=== PATIENT | male | born 2000 | race Caucasian/White ===

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

== ENCOUNTER 2021-02-06 13:56 | Outpatient (REF) | payer MEDICAID, SELFPAY | END 2021-02-06 13:57 | disposition home or self-care (01) | LOC: HO.LAB 13:56 | PROVIDERS: Visit Provider Internal Medicine | DX: Z20.822 Contact with and (suspected) exposure to COVID-19 (principal) | CPT/HCPCS: C9803; U0003; U0005 ==

== ENCOUNTER 2022-06-30 00:49 | Emergency (ER) | payer MEDICAID, SELFPAY ==
[2022-06-30 01:03] VITALS: BP 139/98; PULSE 80; RESP 16; TEMP 36.4; O2SAT 99; BMI 29.9
== END 2022-06-30 05:05 | disposition left against medical advice (07) ==
PROVIDERS: Emergency Provider Emergency Medicine
DX: R10.11 Right upper quadrant pain (principal)
CPT/HCPCS: 99281

== ENCOUNTER 2023-07-07 11:02 | Inpatient (IN) | payer MEDICAID, SELFPAY ==
--- NOTE | ~2023-07-07 | MR_ITS ---
EXAMINATION: MR (MRCP) ABDOMEN WITHOUT CONTRAST CLINICAL INFORMATION: Elevated bilirubin. COMPARISON: Abdominal ultrasound 07/07/2023. CT abdomen/pelvis 07/07/2023. TECHNIQUE: MR abdomen is performed without gadolinium contrast. 3D MRCP images were processed on an independent workstation under concurrent supervision. FINDINGS: LUNG BASES: The visualized lung bases are unremarkable. LIVER, GALLBLADDER, AND BILIARY TREE: Signal loss in the opposed phase dual echo images consistent with hepatic steatosis with regions of fatty sparing adjacent to the gallbladder fossa. Otherwise, the liver is normal in size and morphology. No suspicious focal liver lesions seen in this limited non-contrast examination. Multiple gallbladder calculi, largest in the neck measuring up to 2 cm in size (4:11) with associated diffuse gallbladder wall thickening, mural edema and pericholecystic free fluid. No evidence of intrahepatic or extrahepatic biliary ductal dilatation. The common bile duct measures 0.5 cm in diameter. No evidence of choledocholithiasis. PANCREAS: Unremarkable. SPLEEN: Unremarkable. ADRENAL GLANDS: Unremarkable. KIDNEYS AND URETERS: The kidneys are normal in size and shape. No hydronephrosis. No perinephric stranding. GASTROINTESTINAL TRACT: No bowel obstruction. No ascites or fluid collection. ABDOMINAL WALL: No significant hernia is appreciated. LYMPH NODES: No lymphadenopathy. VASCULAR: Limited non-contrast examination. Normal caliber of the abdominal aorta. OSSEOUS STRUCTURES: No acute or aggressive appearing osseous findings. MR/MR MRCP IMPRESSION: 1. Findings consistent with acute cholecystitis. 2. No evidence of biliary ductal dilatation or choledocholithiasis. 3. Hepatic steatosis.
--- NOTE | ~2023-07-07 | US_ITS ---
EXAMINATION: US ABDOMEN LIMITED CLINICAL INFORMATION: Distended gallbladder on CT. COMPARISON: None available. TECHNIQUE: Real-time imaging of the right upper quadrant abdominal viscera, specifically the gallbladder and common bile duct. FINDINGS: GALLBLADDER: The gallbladder is physiologically distended. Several gallstones are present. Possible impacted gallstone at the gallbladder neck where the wall appears thickened to 0.5 cm focally. No appreciable pericholecystic fluid. Per technologist report, right upper quadrant tenderness was reported during the exam. COMMON BILE DUCT: Normal in caliber measuring 0.4 cm in diameter. US/US abdomen limited IMPRESSION: Cholelithiasis with possible impacted gallstone at the gallbladder neck where there is focal wall thickening. In the proper clinical setting, findings could reflect sequelae of early acute cholecystitis. If warranted, further evaluation with nuclear medicine hepatobiliary scan may be more definitive.
--- NOTE | ~2023-07-07 | CT_ITS ---
EXAMINATION: CT abdomen pelvis wo IV con CLINICAL INFORMATION: Reason for Exam RUQ and periumbilical pain COMPARISON: No prior CT available for comparison. TECHNIQUE: Multidetector volumetric imaging was performed from the superior aspect of the liver through the pubic symphysis , noncontrast study Sagittal and coronal reformatted images were obtained on the technologist's workstation. This CT examination was performed using dose optimization techniques as appropriate, variously including the following: *Automated exposure control *Adjustment of mA and/or kV according to patient size (this includes techniques or standardized protocols for targeted exams where dose is matched to indication/reason for exam; i.e. extremities or head) *Use of iterative reconstruction technique DLP: 409 mGy-cm FINDINGS: LOWER THORAX: Included lung bases are clear. HEPATOBILIARY: Mildly hypodense liver, probably mild steatosis. GALLBLADDER: Distended gallbladder otherwise unremarkable. SPLEEN: Spleen is normal in size. PANCREAS: No focal mass or ductal dilatation. STOMACH AND GASTROINTESTINAL TRACT: Stomach is grossly unremarkable. There is no bowel distention or thickening. No CT evidence of appendicitis. ADRENALS: No adrenal nodules. KIDNEYS/URETERS: No hydronephrosis, stones or solid mass lesions. URINARY BLADDER: Partially decompressed. PELVIC VISCERA: Unremarkable PERITONEUM: No free air or fluid. LYMPH NODES: No lymphadenopathy. VASCULAR:Abdominal aorta normal in size, no aneurysm found. BONES, ABDOMINAL WALL AND SOFT TISSUES: Age-appropriate changes of the spine and skeletal system, no destructive osteolytic or osteosclerotic bone lesion found CT/CT abdomen pelvis wo IV con IMPRESSION: 1. No CT evidence of acute intra-abdominal process to explain patient's pain symptoms. No evidence of appendicitis. No kidney stone or hydronephrosis. 2. Distended gallbladder, if there is a clinical suspicion for cholecystitis, would recommend correlation with follow-up ultrasound. 3. Mildly hypodense liver, probably mild steatosis.
[2023-07-07 11:07] VITALS: BP 140/87; PULSE 70; RESP 18; TEMP 36.4; O2SAT 98; BMI 28.1
--- NOTE | 2023-07-07 11:07 | ED.NAVMDI ---
HPI - Nausea/Vomiting/Diarrhea General Chief complaint: Abdominal Pain Stated complaint: Abd pain Time Seen by Provider: 07/07/23 16:12 Source: patient and family Mode of arrival: ambulatory Limitations: no limitations History of Present Illness HPI Narrative: 22-year-old male previously healthy presents the ER with complaints of right upper quadrant pain which began at 05:00 with associated vomiting. Patient reports that last night he went to [employer] and had a milkshake and pork ribs. He reports multiple episodes of nonbilious, nonbloody vomiting. He denies any associated diarrhea, constipation, urinary symptoms, fevers or chills. Associated nausea: Yes Related Data Allergies Allergy/AdvReac Type Severity Reaction Status Date / Time No Known Allergies Allergy Verified 06/30/22 01:07 [No Known Allergies*] Review of Systems Review of Systems: Yes all other systems are reviewed and are negative Constitutional: Constitutional: Reports no additional constitutional complaints, Denies body ache(s), Denies chills, Denies fever(s), Denies headache(s) and Denies weakness Eyes: Eyes: Reports no additional eye complaints and Denies change in vision ENT: Reports system reviewed and no additional complaints, except as documented, Denies dizziness, Denies headache(s), Denies nasal congestion, Denies nasal discharge and Denies neck pain Cardiovascular: Cardiovascular: Reports no additional cardiovascular complaints, Denies chest pain, Denies leg edema and Denies dyspnea Respiratory: Respiratory: Reports no additional respiratory complaints, Denies cough and Denies dyspnea Gastrointestinal: Gastrointestinal: Reports no additional gastrointestinal complaints, Reports abdominal pain, Denies constipation, Denies diarrhea, Reports nausea and Reports vomiting Genitourinary: Genitourinary: Denies urinary incontinence Musculoskeletal: Musculoskeletal: Reports no additional musculoskeletal complaints, Denies back pain, Denies arthralgias, Denies joint swelling, Denies neck pain, Denies numbness and Denies tingling Integumentary/Breasts: Skin/Breast: Reports system reviewed and no additional complaints, except as docu and Denies rash Neurologic: Reports system reviewed and no additional complaints, except as documented, Denies Abnormal speech present, Denies dizziness, Denies headache(s), Denies numbness, Denies tingling and Denies weakness PMFSH Past Medical History Attestation statement: The following information was validated with the patient. Source: old records reviewed and nursing notes reviewed Medical History Gallstone Social History Social History Advance Directives: No Advance Directives Information Provided: No Physical Exam Vital Signs: Vital Signs: Last Vital Signs Temp 97.5 F 07/07/23 11:07 Pulse 70 07/07/23 11:07 Resp 18 07/07/23 11:07 BP 140/87 H 07/07/23 11:07 Pulse Ox 98 07/07/23 11:07 O2 Del Method Room Air 07/07/23 11:07 BMI result Body Mass Index 28.1 Const: General: cooperative, healthy appearing, comfortable and no acute distress Orientation/consciousness: patient oriented x3 Limitations: no limitations HEENT: Head: Yes normal to inspection Ears: hearing grossly normal bilaterally General nose exam: Normal external nose present Face and sinus: Yes normal facial exam Mouth: Normal oral and palatal mucosa present Throat: Yes posterior oropharynx normal Eyes: General: appearance normal, both eyes and all related structures Pupils: Equal, round and reactive pupils present Neck: Neck: Yes normal visual inspection Chest: Chest palpation & inspection: normal inspection of the chest Resp: Effort & Inspection: normal respiratory effort Auscultation: clear to auscultation bilaterally Cardio: Rate: regular rate Rhythm: regular rhythm Peripheral pulses: Peripheral pulses 2+ throughout GI: Inspection: Yes normal to inspection Palpation (GI): Soft to palpation, Tenderness to palpation present (GI) in the RUQ; with no rebound tenderness and no guarding Auscultation: normal bowel sounds Back/Spine/Pelvis: Thoracic/Lumbar Spine: thoracic and lumbar spine normal to inspection Skin: General skin exam: no rashes or lesions noted Neuro: General: patient oriented x3, no focal motor deficits and normal sensation to monofilament Cranial nerves: Yes Equal, round and reactive pupils present Cognition (Neuro): normal cognition Speech: No Abnormal speech present Gait exam (Neuro): Normal gait present Motor exam (neuro): 5/5 motor strength present throughout Extrem: General: Yes normal to inspection Course Course Course Narrative: RME:?22 yo male here for eval of constant RUQ pain, N/V which woke him from his sleep at 0500 this morning. pain is not worse with eating. took tylenol [employer] however vomited this up. denies fever, chills, diarrhea. No sick contacts. no hx of abd surgeries. RUQ ttp without rebound or guarding. normoactive BS x4. labs, CT ordered. Full HPI, ROS and PE to be performed by the primary ED provider. Reevaluation(s) Reevaluation #1: [id number]-Spoke to general surgery. They are ordering antibiotics. At this time infection suspected. BCX and lactic acid ordered. Antibiotics ordered Medications Administered Discontinued Medications Generic Name Dose Route Start Last Admin Trade Name Freq PRN Reason Stop Dose Admin Ondansetron HCl 4 mg 07/07/23 11:09 07/07/23 11:14 Ondansetron Odt 4 Mg Tab.Rapdis TRANSLINGU 07/07/23 11:10 4 mg ONCE ONE Administration Medical Decision Making Medical Decision Making [facility] Narrative: 22-year-old male previously healthy presents the ER with complaints of right upper quadrant pain which began at 05:00 with associated vomiting. Patient reports that last night he went to [employer] and had a milkshake and pork ribs. He reports multiple episodes of nonbilious, nonbloody vomiting. He denies any associated diarrhea, constipation, urinary symptoms, fevers or chills. RUQ TTP. No rebound or guarding. Ct shows distended GB. US shows Cholelithiasis with possible impacted gallstone in the gallbladder neck where there is focal wall thickening. Surgery consulted who came down to see the patient Differential Diagnosis Differential Diagnoses: The differential diagnosis associated with the presentation includes Cholecystitis, cholelithiasis Admission/Observation Consideration of admission/observation: Escalation of care including admission/observation considered ultrasound shows cholelithiasis with impacted stone in the gallbladder neck. surgery was consulted who came down to see the patient will admit Consult Healthcare Provider Management of the patient was discussed with: Crane Service Technician Dr Brand-will admit Lab Data [facility] Lab Attestation statement: I reviewed the patient's lab results. 07/07/23 11:19 07/07/23 11:19 Labs: Lab Results 07/07/23 Range/Units 11:19 WBC 11.3 H (4.8-10.8) X10*3/uL RBC 5.58 (4.60-5.80) X10*6/uL Hgb 15.7 (14.0-18.0) g/dl Hct 45.8 (42.0-52.0) % MCV 82.1 (80.0-98.0) fL MCH 28.1 (27.0-33.0) pg MCHC 34.3 (31.0-36.0) g/dl RDW 12.0 (11.0-16.0) % Plt Count 258 (160-400) X10*3/uL MPV 10.1 (9.4-12.4) fL Immature Gran % (Auto) 0.4 (0.0-0.4) % Neut % (Auto) 87.0 H (45-73) % Lymph % (Auto) 9.4 L (20-40) % [place] % (Auto) 2.9 (2-11) % Eos % (Auto) 0.1 (0-4) % Baso % (Auto) 0.2 (0-2) % Lymph # (Auto) 1.1 L (1.2-4.9) X10*3/uL [place] # (Auto) 0.3 (0.1-1.2) X10*3/uL Eos # (Auto) 0.0 (0.0-0.4) X10*3/uL Baso # (Auto) 0.0 (0.0-0.2) X10*3/uL Abs Immat Gran (auto) 0.05 H (0.00-0.03) X10*3/uL Absolute Neuts (auto) 9.8 H (2.0-8.3) x10*3/uL Absolute Nucleated RBC 0.000 (0.0-0.012) X10*3/uL Nucleated RBC % (auto) 0.0 (0.0-0.2) /100WBC Sodium 142 (135-145) mmol/L Potassium 3.9 (3.3-5.1) mmol/L Chloride 104 (96-108) mmol/L Carbon Dioxide 29 (22-29) mmol/L Anion Gap 13 (12-20) BUN 13 (9-16) mg/dL Creatinine 1.19 (0.5-1.4) mg/dL Estim Creat Clear Calc 97.0 Estimated GFR > 60 Random Glucose 129 H (60-115) mg/dL Calcium 10.0 (8.4-10.2) mg/dL Magnesium 1.9 (1.6-2.6) mg/dL Total Bilirubin 0.6 (0.0-1.0) mg/dL AST 34 (5-37) U/L ALT 72 H (0-40) U/L Alkaline Phosphatase 69 (39-117) U/L Total Protein 8.8 H (6.5-8.0) g/dL Albumin 4.9 (3.5-5.0) g/dL Lipase 15 (8-78) U/L Independent Interpretation I performed an independent interpretation of an: Ultrasound and CT Scan Interpretation: I independently reviewed the abdominal US and CT scan and agree with the rad report Radiology Impression Discussion of test interpretation with radiology: I have reviewed the radiologist's reading. Radiologist Impression: [address] [address] Ultrasound Report Signed Patient: Adiel Spivey MR#: [id number] : 2000 Acct:[id number] Age/Sex: 22 / M ADM Date: 07/07/23 Loc: .ED Attending Dr: Ordering Physician: Denise Matthew Date of Service: 07/07/23 Procedure(s): US abdomen limited Accession Number(s): [id number] cc: Physician,Unknown ; Denise Matthew~ EXAMINATION: US ABDOMEN LIMITED CLINICAL INFORMATION: Distended gallbladder on CT. COMPARISON: None available. TECHNIQUE: Real-time imaging of the right upper quadrant abdominal viscera, specifically the gallbladder and common bile duct. FINDINGS: GALLBLADDER: The gallbladder is physiologically distended. Several gallstones are present. Possible impacted gallstone at the gallbladder neck where the wall appears thickened to 0.5 cm focally. No appreciable pericholecystic fluid. Per technologist report, right upper quadrant tenderness was reported during the exam. COMMON BILE DUCT: Normal in caliber measuring 0.4 cm in diameter. US/US abdomen limited IMPRESSION: Cholelithiasis with possible impacted gallstone at the gallbladder neck where there is focal wall thickening. In the proper clinical setting, findings could reflect sequelae of early acute cholecystitis. If warranted, further evaluation with nuclear medicine hepatobiliary scan may be more definitive. [address] [address] [address] Scan Report Signed Patient: Adiel Spivey MR#: [id number] : 2000 Acct:[id number] Age/Sex: 22 / M ADM Date: 07/07/23 Loc: HO.ED Attending Dr: Ordering Physician: Denise Matthew Date of Service: 07/07/23 Procedure(s): CT abdomen pelvis wo IV con Accession Number(s): [id number] cc: Physician,Unknown ; Denise Matthew~ EXAMINATION: CT abdomen pelvis wo IV con CLINICAL INFORMATION: Reason for Exam RUQ and periumbilical pain COMPARISON: No prior CT available for comparison. TECHNIQUE: Multidetector volumetric imaging was performed from the superior aspect of the liver through the pubic symphysis , noncontrast study Sagittal and coronal reformatted images were obtained on the technologist's workstation. This CT examination was performed using dose optimization techniques as appropriate, variously including the following: *Automated exposure control *Adjustment of mA and/or kV according to patient size (this includes techniques or standardized protocols for targeted exams where dose is matched to indication/reason for exam; i.e. extremities or head) *Use of iterative reconstruction technique DLP: 409 mGy-cm FINDINGS: LOWER THORAX: Included lung bases are clear. HEPATOBILIARY: Mildly hypodense liver, probably mild steatosis. GALLBLADDER: Distended gallbladder otherwise unremarkable. SPLEEN: Spleen is normal in size. PANCREAS: No focal mass or ductal dilatation. STOMACH AND GASTROINTESTINAL TRACT: Stomach is grossly unremarkable. There is no bowel distention or thickening. No CT evidence of appendicitis. ADRENALS: No adrenal nodules. KIDNEYS/URETERS: No hydronephrosis, stones or solid mass lesions. URINARY BLADDER: Partially decompressed. PELVIC VISCERA: Unremarkable PERITONEUM: No free air or fluid. LYMPH NODES: No lymphadenopathy. VASCULAR:Abdominal aorta normal in size, no aneurysm found. BONES, ABDOMINAL WALL AND SOFT TISSUES: Age-appropriate changes of the spine and skeletal system, no destructive osteolytic or osteosclerotic bone lesion found CT/CT abdomen pelvis wo IV con IMPRESSION: 1. No CT evidence of acute intra-abdominal process to explain patient's pain symptoms. No evidence of appendicitis. No kidney stone or hydronephrosis. 2. Distended gallbladder, if there is a clinical suspicion for cholecystitis, would recommend correlation with follow-up ultrasound. 3. Mildly hypodense liver, probably mild steatosis. Independent Historian Clinical information obtained from an independent historian. History obtained from or confirmed by: Parent Critical Care Time Critical Care Time Critical Care Time: Yes Total Critical Care Time: 45 Attestation: surgical abdomen requiring surgical consultation and admission Discharge Plan Discharge Clinical Impression: Gallstone Patient Disposition: Admitted As Inpatient
[2023-07-07] MEDS: Ondansetron ODT 4 MG TAB.RAPDIS TRANSLINGU (11:14)
[2023-07-07 11:22] LABS: MANUAL DIFF FLAG NO
[2023-07-07 11:33] LABS: Basophils Percent Auto 0.2 % (0-2); Eosinophils Percent Auto 0.1 % (0-4); Hematocrit 45.8 % (42.0-52.0); Hemoglobin 15.7 g/dl (14.0-18.0); Imm Gran Abs Auto 0.05 X10*3/uL (0.00-0.03); Imm Gran Pct Auto 0.4 % (0.0-0.4); Lymphocytes Absolute Auto 1.1 X10*3/uL (1.2-4.9); Lymphocytes Percent Auto 9.4 % (20-40); Mean Corpuscular HGB Conc 34.3 g/dl (31.0-36.0); Mean Corpuscular Hemoglobin 28.1 pg (27.0-33.0); Mean Corpuscular Volume 82.1 fL (80.0-98.0); Mean Platelet Volume 10.1 fL (9.4-12.4); Monocytes Absolute Auto 0.3 X10*3/uL (0.1-1.2); Monocytes Percent Auto 2.9 % (2-11); Neutrophils Absolute Auto 9.8 x10*3/uL (2.0-8.3); Platelet Count 258 X10*3/uL (160-400); Red Blood Count 5.58 X10*6/uL (4.60-5.80); White Blood Count 11.3 X10*3/uL (4.8-10.8)
[2023-07-07 11:41] LABS: Alanine Aminotransferase 72 U/L (0-40); Albumin Level 4.9 g/dL (3.5-5.0); Alkaline Phosphatase 69 U/L (39-117); Anion Gap 13 (12-20); Aspartate Amino Transferase 34 U/L (5-37); Bilirubin Total 0.6 mg/dL (0.0-1.0); Blood Urea Nitrogen 13 mg/dL (9-16); Carbon Dioxide 29 mmol/L (22-29); Chloride 104 mmol/L (96-108); Estimated Glomerular Filt Rate > 60; Glucose Random 129 mg/dL (60-115); Lipase 15 U/L (8-78); Magnesium 1.9 mg/dL (1.6-2.6); Potassium 3.9 mmol/L (3.3-5.1); Sodium 142 mmol/L (135-145); Total Protein 8.8 g/dL (6.5-8.0)
[2023-07-07 16:10] VITALS: BP 159/74; PULSE 85; RESP 14; TEMP 37.2; O2SAT 100
--- NOTE | 2023-07-07 16:22 | PM.HPGS ---
History of Present Illness History of Present Illness Date of Service: 07/09/23 Chief complaint: Gallstones Narrative: Adiel Mullins is a 22 year old male here in the ED for RUQ pain. He says this started at around 7 AM today. The describes this as constant. He says this was not severe but had persisted so he decided to come to the ED this afternoon. He admits to some nausea and vomitting earlier. He denies previous similar episodes. Review of Systems Constitutional: Constitutional: Denies chills and Denies fever(s) Cardiovascular: Cardiovascular: Denies chest pain, Denies dyspnea and Denies dyspnea on exertion Respiratory: Respiratory: Denies cough, Denies dyspnea and Denies dyspnea on exertion Gastrointestinal: Gastrointestinal: Denies hematochezia and Denies change in bowel habits Genitourinary: Genitourinary: Denies hematuria and Denies difficulty urinating Musculoskeletal: Musculoskeletal: Denies back pain and Denies limited range of motion Neurologic: Denies focal weakness and Denies convulsions Psychiatric: Psychiatric: Denies depression and Denies mood swings PMFSH Past Medical History Medical History Gallstone Social History Social History Household Members: Family Housing: Apartment Do you presently have visiting nurse or other home services: No Patient Tobacco Use Status: Never used Tobacco Smoked in Last 30 Days: No Second Hand Smoke Exposure: No Use of substances other than those prescribed or required for medical reasons: No Currently Displaying Signs/Symptoms of Drug Intoxication Withdrawal: No Have you been hit, kicked, punched, or otherwise hurt by someone within the past year? If so, by whom?: No Do you feel safe in your current relationship?: No Current Relationship Is there a partner from a previous relationship who is making you feel unsafe now?: No Are you made to feel afraid or neglected: No Are you DNR?: No Advance Directives: No Advance Directives Information Provided: No Advance Directives on File: No Do you have thoughts of harming others: None Do you have a plan to hurt others: No Plan Recently lost weight without trying: No Nutrition Risks: No Nutritional Risk Poor oral hygiene: No service: No Meds Allergies Allergy/AdvReac Type Severity Reaction Status Date / Time No Known Allergies Allergy Verified 06/30/22 01:07 [No Known Allergies*] Physical Exam Vital Signs: Vital Signs: Last Vital Signs Temp 97.5 F 07/07/23 11:07 Pulse 70 07/07/23 11:07 Resp 18 07/07/23 11:07 BP 140/87 H 07/07/23 11:07 Pulse Ox 98 07/07/23 11:07 O2 Del Method Room Air 07/07/23 11:07 BMI result Body Mass Index 28.1 Const: General: comfortable and no acute distress Orientation/consciousness: patient oriented x3 Eyes: Other: anicteric sclerae Neck: Neck: Yes no lymphadenopathy Resp: Auscultation: clear to auscultation bilaterally Cardio: Rhythm: regular rhythm GI: Other: mild tenderness to deep palpation on RUQ, no Rae's sign Palpation (GI): Soft to palpation, nontender and no guarding Neuro: General: patient oriented x3 Results Results Labs: Short CBC 07/07/23 Range/Units 11:19 WBC 11.3 H (4.8-10.8) X10*3/uL Hgb 15.7 (14.0-18.0) g/dl Hct 45.8 (42.0-52.0) % Plt Count 258 (160-400) X10*3/uL BMP 07/07/23 11:19 Sodium 142 Potassium 3.9 Chloride 104 Carbon Dioxide 29 BUN 13 Creatinine 1.19 Calcium 10.0 Liver Function 07/07/23 Range/Units 11:19 Total Bilirubin 0.6 (0.0-1.0) mg/dL AST 34 (5-37) U/L ALT 72 H (0-40) U/L Alkaline Phosphatase 69 (39-117) U/L Albumin 4.9 (3.5-5.0) g/dL Abdomen CT scan report/results: report reviewed and image reviewed CT scan - pelvis: report reviewed and image reviewed Abdominal ultrasound report/results: report reviewed and image reviewed Additional studies: Laboratory Results WBC 11.3 X10*3/uL (4.8-10.8) H 07/07/23 11:19 RBC 5.58 X10*6/uL (4.60-5.80) 07/07/23 11:19 Hgb 15.7 g/dl (14.0-18.0) 07/07/23 11:19 Hct 45.8 % (42.0-52.0) 07/07/23 11:19 MCV 82.1 fL (80.0-98.0) 07/07/23 11:19 MCH 28.1 pg (27.0-33.0) 07/07/23 11:19 MCHC 34.3 g/dl (31.0-36.0) 07/07/23 11:19 RDW 12.0 % (11.0-16.0) 07/07/23 11:19 Plt Count 258 X10*3/uL (160-400) 07/07/23 11:19 MPV 10.1 fL (9.4-12.4) 07/07/23 11:19 Immature Gran % (Auto) 0.4 % (0.0-0.4) 07/07/23 11:19 Neut % (Auto) 87.0 % (45-73) H 07/07/23 11:19 Lymph % (Auto) 9.4 % (20-40) L 07/07/23 11:19 [place] % (Auto) 2.9 % (2-11) 07/07/23 11:19 Eos % (Auto) 0.1 % (0-4) 07/07/23 11:19 Baso % (Auto) 0.2 % (0-2) 07/07/23 11:19 Lymph # (Auto) 1.1 X10*3/uL (1.2-4.9) L 07/07/23 11:19 [place] # (Auto) 0.3 X10*3/uL (0.1-1.2) 07/07/23 11:19 Eos # (Auto) 0.0 X10*3/uL (0.0-0.4) 07/07/23 11:19 Baso # (Auto) 0.0 X10*3/uL (0.0-0.2) 07/07/23 11:19 Abs Immat Gran (auto) 0.05 X10*3/uL (0.00-0.03) H 07/07/23 11:19 Absolute Neuts (auto) 9.8 x10*3/uL (2.0-8.3) H 07/07/23 11:19 Absolute Nucleated RBC 0.000 X10*3/uL (0.0-0.012) 07/07/23 11:19 Nucleated RBC % (auto) 0.0 /100WBC (0.0-0.2) 07/07/23 11:19 Sodium 142 mmol/L (135-145) 07/07/23 11:19 Potassium 3.9 mmol/L (3.3-5.1) 07/07/23 11:19 Chloride 104 mmol/L (96-108) 07/07/23 11:19 Carbon Dioxide 29 mmol/L (22-29) 07/07/23 11:19 Anion Gap 13 (12-20) 07/07/23 11:19 BUN 13 mg/dL (9-16) 07/07/23 11:19 Creatinine 1.19 mg/dL (0.5-1.4) 07/07/23 11:19 Estim Creat Clear Calc 97.0 07/07/23 11:19 Estimated GFR > 60 07/07/23 11:19 Random Glucose 129 mg/dL (60-115) H 07/07/23 11:19 Calcium 10.0 mg/dL (8.4-10.2) 07/07/23 11:19 Magnesium 1.9 mg/dL (1.6-2.6) 07/07/23 11:19 Total Bilirubin 0.6 mg/dL (0.0-1.0) 07/07/23 11:19 AST 34 U/L (5-37) 07/07/23 11:19 ALT 72 U/L (0-40) H 07/07/23 11:19 Alkaline Phosphatase 69 U/L (39-117) 07/07/23 11:19 Total Protein 8.8 g/dL (6.5-8.0) H 07/07/23 11:19 Albumin 4.9 g/dL (3.5-5.0) 07/07/23 11:19 Lipase 15 U/L (8-78) 07/07/23 11:19 Impressions Abdomen/Pelvis CT 07/07/23 11:48 IMPRESSION: 1. No CT evidence of acute intra-abdominal process to explain patient's pain symptoms. No evidence of appendicitis. No kidney stone or hydronephrosis. 2. Distended gallbladder, if there is a clinical suspicion for cholecystitis, would recommend correlation with follow-up ultrasound. 3. Mildly hypodense liver, probably mild steatosis. Abdomen Ultrasound 07/07/23 14:50 IMPRESSION: Cholelithiasis with possible impacted gallstone at the gallbladder neck where there is focal wall thickening. In the proper clinical setting, findings could reflect sequelae of early acute cholecystitis. If warranted, further evaluation with nuclear medicine hepatobiliary scan may be more definitive. Assessment and Plan (1) Gallstone: Status: Acute Plan He describes mild RUQ pain. I have reviewed his imaging studies. He has gallstones, and there is a question of a gallstone in the neck. he has a very benign exam and has mild tenderness. I advised him admission in view of the question of cholecystitis. I explained the option of proceeding with lap cholecystectomy poss. open for acute cholecystitis. I exaplined the risks including but not limited to bleeding, infections, injury to bowel, liver, bile ducts, retained stones, bile leak, as well as the benefits and alternatives. He says he is willing to stay and will decide on cholecystectomy tomorrow. His mother was with him during the discussion. Quality Stroke Does the patient have a stroke diagnosis?: No VTE Prior VTE?: No VTE Risk Level:: Medical - low VTE Device Contraindication: Treatment Not Indicated VTE Drug Contraindication: Treatment Not Indicated Procedures Date of Service Date of Service: 07/09/23
[2023-07-07] MEDS: 0.9 % Sodium Chloride 1,000 ML 999 ML IV (17:12)
[2023-07-07] MEDS: Piperacillin Sodium/Tazobactam 3.375 GM in 0.9 % Sodium Chloride 50 ML IV (17:13)
[2023-07-07] MEDS: Morphine Sulfate 4 MG/ML CARTRIDGE IVPUSH (17:13)
[2023-07-07] MEDS: ondansetron HCL 4 MG/2 ML VIAL IVPUSH (17:13)
[2023-07-07 17:20] LABS: Lactic Acid 1.5 mmol/L (0.5-2.0)
--- NOTE | 2023-07-07 17:51 | PHA.MEDREC ---
Pharmacy Consult ? Medication Reconciliation Patient had no medications to report. Pharmacy has completed the medication reconciliation.
[2023-07-07 18:39] VITALS: BP 130/77; PULSE 78; RESP 16; TEMP 36.8; O2SAT 97
[2023-07-07] MEDS: Dextrose 5 % and 0.9 % NaCl 1,000 ML 80 ML IVCONT (18:40)
[2023-07-07 20:45] VITALS: BP 129/75; PULSE 100; RESP 20; TEMP 36.4; O2SAT 98
--- NOTE | 2023-07-07 21:14 | MHC.PIE ---
p; pt arrived from ed c/o nausea. note prn zofran given in ed at 1700 i; dr kinney notified. telephone order phenergan 12.5 iv q6 for nausea. e; will cont to monitor
[2023-07-07] MEDS: 0.9 % Sodium Chloride Flush 3 ML SYRINGE IVFLUSH (21:29)
[2023-07-07 21:33] VITALS: BMI 28.8
[2023-07-08 03:45] VITALS: BP 130/67; PULSE 99; RESP 16; TEMP 36.5; O2SAT 96
[2023-07-08 05:38] LABS: MANUAL DIFF FLAG NO
[2023-07-08 05:43] LABS: Basophils Percent Auto 0.2 % (0-2); Hematocrit 41.4 % (42.0-52.0); Hemoglobin 14.2 g/dl (14.0-18.0); Imm Gran Abs Auto 0.03 X10*3/uL (0.00-0.03); Imm Gran Pct Auto 0.3 % (0.0-0.4); Lymphocytes Percent Auto 21.4 % (20-40); Mean Corpuscular HGB Conc 34.3 g/dl (31.0-36.0); Mean Corpuscular Hemoglobin 28.5 pg (27.0-33.0); Mean Platelet Volume 10.2 fL (9.4-12.4); Monocytes Percent Auto 10.4 % (2-11); Neutrophils Absolute Auto 6.4 x10*3/uL (2.0-8.3); Neutrophils Percent Auto 67.7 % (45-73); Platelet Count 225 X10*3/uL (160-400); Red Blood Count 4.99 X10*6/uL (4.60-5.80); Red Cell Distribution Width 12.5 % (11.0-16.0); White Blood Count 9.5 X10*3/uL (4.8-10.8)
[2023-07-08 05:59] LABS: Anion Gap 13 (12-20); Blood Urea Nitrogen 8 mg/dL (9-16); Calcium 9.1 mg/dL (8.4-10.2); Carbon Dioxide 26 mmol/L (22-29); Chloride 106 mmol/L (96-108); Creatinine Clr Calc Pharmacy 128.3; Estimated Glomerular Filt Rate > 60; Glucose Random 118 mg/dL (60-115); Potassium 3.4 mmol/L (3.3-5.1); Sodium 142 mmol/L (135-145)
[2023-07-08 06:00] LABS: Alanine Aminotransferase 141 U/L (0-40); Alkaline Phosphatase 57 U/L (39-117); Anion Gap 14 (12-20); Aspartate Amino Transferase 142 U/L (5-37); Bilirubin Total 1.5 mg/dL (0.0-1.0); Blood Urea Nitrogen 8 mg/dL (9-16); Calcium 9.1 mg/dL (8.4-10.2); Carbon Dioxide 26 mmol/L (22-29); Chloride 106 mmol/L (96-108); Creatinine Clr Calc Pharmacy 125.6; Estimated Glomerular Filt Rate > 60; Glucose Random 118 mg/dL (60-115); Potassium 3.5 mmol/L (3.3-5.1); Sodium 142 mmol/L (135-145); Total Protein 7.1 g/dL (6.5-8.0)
[2023-07-08] MEDS: Dextrose 5 % and 0.9 % NaCl 1,000 ML 80 ML IVCONT ×2 (06:06→19:38)
[2023-07-08 07:23] VITALS: BP 120/62; PULSE 71; RESP 16; TEMP 36.7; O2SAT 96
--- NOTE | 2023-07-08 08:29 | PM.PNGS ---
Subjective Subjective Date of Service: 07/08/23 Interval history: says he was ok overnight pain better - minimal overall feels well Physical Exam Vital Signs: Vital Signs: Last Vital Signs Temp 98.1 F 07/08/23 07:23 Pulse 71 07/08/23 07:23 Resp 16 07/08/23 07:23 BP 120/62 07/08/23 07:23 Pulse Ox 96 07/08/23 07:23 O2 Del Method Room Air 07/08/23 07:23 BMI result Body Mass Index 28.8 Const: General: comfortable and no acute distress Orientation/consciousness: patient oriented x3 Neck: Neck: Yes no lymphadenopathy Resp: Auscultation: clear to auscultation bilaterally Cardio: Rhythm: regular rhythm GI: Other: very minimal tenderness on deep palpation Palpation (GI): Soft to palpation, Tenderness to palpation present (GI) and no guarding Neuro: General: patient oriented x3 Objective Data Active Medications Dextrose/Sodium Chloride (D5ns) 1,000 mls @ 80 mls/hr IVCONT .[id number] [facility] Last Admin: 07/08/23 06:06 Dose: 80 mls/hr Documented By: SREEDHAR Promethazine HCl 12.5 mg/ (Sodium Chloride) 50.5 mls @ 202 mls/hr IV Q6H PRN PRN Reason: Nausea Last Infusion: 07/07/23 21:52 Dose: Infused Documented By: SREEDHAR Cefotetan Disodium 2 gm/ (Sodium Chloride) 50 mls @ 100 mls/hr IV PREOP ONE Stop: 07/08/23 08:42 Morphine Sulfate (Morphine Sulfate 2 Mg/Ml Cartridge) 2 mg IVPUSH Q3H PRN; Protocol PRN Reason: Pain, Severe (Pain Scale 7-10) Ondansetron HCl (Ondansetron Hcl 4 Mg/2 Ml Vial) 4 mg IVPUSH Q8H PRN PRN Reason: nausea Oxycodone HCl (Oxycodone Hcl Immed Release 5 Mg Tablet) 5 mg PO Q6H PRN PRN Reason: Pain, Moderate(Pain Scale 4-6) Sodium Chloride (0.9 % Sodium Chloride Flush 3 Ml Syringe) 3 ml IVFLUSH QSHIFT [facility] Last Admin: 07/07/23 21:29 Dose: 3 ml Documented By: SREEDHAR Labs 07/08/23 05:18 07/08/23 05:18 Labs: Laboratory Results - last 24 hr 07/07/23 07/07/23 07/08/23 11:19 17:03 05:18 MCV 82.1 83.0 MCH 28.1 28.5 MCHC 34.3 34.3 RDW 12.0 12.5 Plt Count 258 225 MPV 10.1 10.2 Immature Gran % (Auto) 0.4 0.3 Neut % (Auto) 87.0 H 67.7 Lymph % (Auto) 9.4 L 21.4 [place] % (Auto) 2.9 10.4 Eos % (Auto) 0.1 0.0 Baso % (Auto) 0.2 0.2 Lymph # (Auto) 1.1 L 2.0 [place] # (Auto) 0.3 1.0 Eos # (Auto) 0.0 0.0 Baso # (Auto) 0.0 0.0 Abs Immat Gran (auto) 0.05 H 0.03 Absolute Neuts (auto) 9.8 H 6.4 Absolute Nucleated RBC 0.000 0.000 Nucleated RBC % (auto) 0.0 0.0 Anion Gap 13 13 Estim Creat Clear Calc 97.0 Estimated GFR > 60 Random Glucose 129 H Lactic Acid 1.5 Calcium 10.0 Magnesium 1.9 Total Bilirubin 0.6 AST 34 ALT 72 H Alkaline Phosphatase 69 Total Protein 8.8 H Albumin 4.9 Lipase 15 07/08/23 07/08/23 07/08/23 05:18 05:18 05:18 MCV MCH MCHC RDW Plt Count MPV Immature Gran % (Auto) Neut % (Auto) Lymph % (Auto) [place] % (Auto) Eos % (Auto) Baso % (Auto) Lymph # (Auto) [place] # (Auto) Eos # (Auto) Baso # (Auto) Abs Immat Gran (auto) Absolute Neuts (auto) Absolute Nucleated RBC Nucleated RBC % (auto) Anion Gap 14 Estim Creat Clear Calc 128.3 125.6 Estimated GFR > 60 > 60 Random Glucose 118 H Lactic Acid Calcium Magnesium Total Bilirubin AST ALT Alkaline Phosphatase Total Protein Albumin Lipase 07/08/23 07/08/23 05:18 05:18 MCV MCH MCHC RDW Plt Count MPV Immature Gran % (Auto) Neut % (Auto) Lymph % (Auto) [place] % (Auto) Eos % (Auto) Baso % (Auto) Lymph # (Auto) [place] # (Auto) Eos # (Auto) Baso # (Auto) Abs Immat Gran (auto) Absolute Neuts (auto) Absolute Nucleated RBC Nucleated RBC % (auto) Anion Gap Estim Creat Clear Calc Estimated GFR Random Glucose 118 H Lactic Acid Calcium 9.1 D 9.1 Magnesium Total Bilirubin 1.5 H AST 142 H ALT 141 H Alkaline Phosphatase 57 Total Protein 7.1 Albumin 4.0 Lipase Laboratory Results WBC 9.5 X10*3/uL (4.8-10.8) 07/08/23 05:18 RBC 4.99 X10*6/uL (4.60-5.80) 07/08/23 05:18 Hgb 14.2 g/dl (14.0-18.0) 07/08/23 05:18 Hct 41.4 % (42.0-52.0) L 07/08/23 05:18 MCV 83.0 fL (80.0-98.0) 07/08/23 05:18 MCH 28.5 pg (27.0-33.0) 07/08/23 05:18 MCHC 34.3 g/dl (31.0-36.0) 07/08/23 05:18 RDW 12.5 % (11.0-16.0) 07/08/23 05:18 Plt Count 225 X10*3/uL (160-400) 07/08/23 05:18 MPV 10.2 fL (9.4-12.4) 07/08/23 05:18 Immature Gran % (Auto) 0.3 % (0.0-0.4) 07/08/23 05:18 Neut % (Auto) 67.7 % (45-73) 07/08/23 05:18 Lymph % (Auto) 21.4 % (20-40) 07/08/23 05:18 [place] % (Auto) 10.4 % (2-11) 07/08/23 05:18 Eos % (Auto) 0.0 % (0-4) 07/08/23 05:18 Baso % (Auto) 0.2 % (0-2) 07/08/23 05:18 Lymph # (Auto) 2.0 X10*3/uL (1.2-4.9) 07/08/23 05:18 [place] # (Auto) 1.0 X10*3/uL (0.1-1.2) 07/08/23 05:18 Eos # (Auto) 0.0 X10*3/uL (0.0-0.4) 07/08/23 05:18 Baso # (Auto) 0.0 X10*3/uL (0.0-0.2) 07/08/23 05:18 Abs Immat Gran (auto) 0.03 X10*3/uL (0.00-0.03) 07/08/23 05:18 Absolute Neuts (auto) 6.4 x10*3/uL (2.0-8.3) 07/08/23 05:18 Absolute Nucleated RBC 0.000 X10*3/uL (0.0-0.012) 07/08/23 05:18 Nucleated RBC % (auto) 0.0 /100WBC (0.0-0.2) 07/08/23 05:18 Sodium 142 mmol/L (135-145) 07/08/23 05:18 Sodium 142 mmol/L (135-145) 07/08/23 05:18 Potassium 3.4 mmol/L (3.3-5.1) 07/08/23 05:18 Potassium 3.5 mmol/L (3.3-5.1) 07/08/23 05:18 Chloride 106 mmol/L (96-108) 07/08/23 05:18 Chloride 106 mmol/L (96-108) 07/08/23 05:18 Carbon Dioxide 26 mmol/L (22-29) 07/08/23 05:18 Carbon Dioxide 26 mmol/L (22-29) 07/08/23 05:18 Anion Gap 13 (12-20) 07/08/23 05:18 Anion Gap 14 (12-20) 07/08/23 05:18 BUN 8 mg/dL (9-16) L 07/08/23 05:18 BUN 8 mg/dL (9-16) L 07/08/23 05:18 Creatinine 0.91 mg/dL (0.5-1.4) 07/08/23 05:18 Creatinine 0.93 mg/dL (0.5-1.4) 07/08/23 05:18 Estim Creat Clear Calc 125.6 07/08/23 05:18 Estim Creat Clear Calc 128.3 07/08/23 05:18 Estimated GFR > 60 07/08/23 05:18 Estimated GFR > 60 07/08/23 05:18 Random Glucose 118 mg/dL (60-115) H 07/08/23 05:18 Random Glucose 118 mg/dL (60-115) H 07/08/23 05:18 Lactic Acid 1.5 mmol/L (0.5-2.0) 07/07/23 17:03 Calcium 9.1 mg/dL (8.4-10.2) 07/08/23 05:18 Calcium 9.1 mg/dL (8.4-10.2) D 07/08/23 05:18 Magnesium 1.9 mg/dL (1.6-2.6) 07/07/23 11:19 Total Bilirubin 1.5 mg/dL (0.0-1.0) H 07/08/23 05:18 AST 142 U/L (5-37) H 07/08/23 05:18 ALT 141 U/L (0-40) H 07/08/23 05:18 Alkaline Phosphatase 57 U/L (39-117) 07/08/23 05:18 Total Protein 7.1 g/dL (6.5-8.0) 07/08/23 05:18 Albumin 4.0 g/dL (3.5-5.0) 07/08/23 05:18 Lipase 15 U/L (8-78) 07/07/23 11:19 Impressions Abdomen/Pelvis CT 07/07/23 11:48 IMPRESSION: 1. No CT evidence of acute intra-abdominal process to explain patient's pain symptoms. No evidence of appendicitis. No kidney stone or hydronephrosis. 2. Distended gallbladder, if there is a clinical suspicion for cholecystitis, would recommend correlation with follow-up ultrasound. 3. Mildly hypodense liver, probably mild steatosis. Abdomen Ultrasound 07/07/23 14:50 IMPRESSION: Cholelithiasis with possible impacted gallstone at the gallbladder neck where there is focal wall thickening. In the proper clinical setting, findings could reflect sequelae of early acute cholecystitis. If warranted, further evaluation with nuclear medicine hepatobiliary scan may be more definitive. Procedures Date of Service Date of Service: 07/08/23 Progress Note: A&P Assessment and plan (1) Gallstone: Status: Acute Assessment and Plan: had RUQ pain all day yesterday, improved imaging showed multiple small gallstones, question of stone in neck pt scheduled for lap manjinder today however, significant bump in bilirubin to 1.5 pt with very minimal tenderness today will check MRCP will hold off on lap manjinder for today plan to do manjinder tomorrow if CBD clear follow LFTs discussed above with pt and mother Time Spent With Patient Time: Total time managing care of this patient today ____ minutes. Quality Stroke Does the patient have a stroke diagnosis?: No VTE Prior VTE?: No VTE Risk Level:: Medical - low VTE Device Contraindication: Treatment Not Indicated VTE Drug Contraindication: Treatment Not Indicated
[2023-07-08] MEDS: 0.9 % Sodium Chloride Flush 3 ML SYRINGE IVFLUSH (08:48)
--- NOTE | 2023-07-08 11:22 | MHC.CM.PN ---
PT LIVES WITH FAMILY IS INDEPENDENT DC PLAN HOME NO SERVIES PT WILL GET TRANSPORT THRU FAMILY
[2023-07-08 15:03] VITALS: BP 109/59; PULSE 74; RESP 16; TEMP 36.8; O2SAT 99
[2023-07-08] MEDS: oxyCODONE HCl Immed Release 5 MG TABLET PO (16:40)
[2023-07-08 19:13] VITALS: BP 116/65; PULSE 93; RESP 14; TEMP 36.6; O2SAT 96
[2023-07-09] VITALS (14 sets, daily range): BP systolic 115–136; BP diastolic 59–80; PULSE 83–116; RESP 13–17; TEMP 36–37.4; O2SAT 95–99
[2023-07-09 06:09] LABS: Alanine Aminotransferase 149 U/L (0-40); Albumin Level 4.1 g/dL (3.5-5.0); Alkaline Phosphatase 65 U/L (39-117); Aspartate Amino Transferase 74 U/L (5-37); Bilirubin Direct 0.5 mg/dL (0.0-0.5); Bilirubin Total 1.5 mg/dL (0.0-1.0); Total Protein 7.5 g/dL (6.5-8.0)
[2023-07-09] MEDS: Dextrose 5 % and 0.9 % NaCl 1,000 ML 80 ML IVCONT ×2 (07:27→23:07)
--- NOTE | 2023-07-09 09:02 | P.PNGS_ITS ---
Subjective Subjective Date of Service: 07/09/23 Interval history: has very minimal pain no events reported Physical Exam 2 Vital Signs: Vital Signs: Last Vital Signs Temp 97.4 F 07/09/23 07:47 Pulse 93 07/09/23 07:47 Resp 16 07/09/23 07:47 BP 127/72 07/09/23 07:47 Pulse Ox 97 07/09/23 07:47 O2 Del Method Room Air 07/09/23 07:47 BMI result Body Mass Index 28.8 Const: General: comfortable and no acute distress O rientation/consciousness: patient oriented x3 Neck: Neck: Yes no lymphadenopathy Resp: Auscultation: clear to auscultation bilaterally Cardio: Rhythm: regular rhythm GI: Palpation (GI): Soft to palpation, nontender and no guarding Neuro: General: patient oriented x3 Objective Data Active Medications Dextrose/Sodium Chloride (D5ns) 1,000 mls @ 80 mls/hr IVCONT .[id number] [facility] Last Admin: 07/09/23 07:27 Dose: 80 mls/hr Documented By: EM Promethazine HCl 12.5 mg/ (Sodium Chloride) 50.5 mls @ 202 mls/hr IV Q6H PRN PRN Reason: Nausea Last Infusion: 07/07/23 21:52 Dose: Infused Documented By: SREEDHAR Cefotetan Disodium 2 gm/ (Sodium Chloride) 50 mls @ 100 mls/hr IV PREOP ONE Stop: 07/09/23 09:29 Morphine Sulfate (Morphine Sulfate 2 Mg/Ml Cartridge) 2 mg IVPUSH Q3H PRN; Protocol PRN Reason: Pain, Severe (Pain Scale 7-10) Ondansetron HCl (Ondansetron Hcl 4 Mg/2 Ml Vial) 4 mg IVPUSH Q8H PRN PRN Reason: nausea Oxycodone HCl (Oxycodone Hcl Immed Release 5 Mg Tablet) 5 mg PO Q6H PRN PRN Reason: Pain, Moderate(Pain Scale 4-6) Last Admin: 07/08/23 16:40 Dose: 5 mg Documented By: EM Sodium Chloride (0.9 % Sodium Chloride Flush 3 Ml Syringe) 3 ml IVFLUSH QSHIFT [facility] Last Admin: 07/09/23 07:28 Dose: Not Given Documented By: EM Non-Admin Reason: IV Running Labs 07/08/23 05:18 07/08/23 05:18 Labs: Laboratory Results - last 24 hr 07/09/23 07/09/23 05:20 05:46 Hold Purple Top SEE NOTE Total Bilirubin 1.5 H Direct Bilirubin 0.5 AST 74 H ALT 149 H Alkaline Phosphatase 65 Total Protein 7.5 Albumin 4.1 Microbiology Microbiology Results: Microbiology 07/07/23 17:03 Blood Culture - Preliminary Blood - Venous No growth after 24 hours. 07/07/23 17:03 Blood Culture - Preliminary Blood - Venous No growth after 24 hours. Procedures Date of Service Date of Service: 07/09/23 Progress Note: A&P Assessment and plan (1) Gallstone: Status: Acute Assessment and Plan: MRCP does not suggest CBD stones LFTs better - direct bili low proceed with lap manjinder poss open today reviewed technique of procedure as well as risks, benefits and alternatives he has given consent mother at bedside Time Spent With Patient Time: Total time managing care of this patient today ____ minutes. Quality Stroke Does the patient have a stroke diagnosis?: No VTE Prior VTE?: No VTE Risk Level:: Medical - low VTE Device Contraindication: Treatment Not Indicated VTE Drug Contraindication: Treatment Not Indicated
--- NOTE | 2023-07-09 11:25 | HO.ANESPROP2 ---
HPI - Anesthesia Eval Consult details Narrative: for yahir dunbar PMFSH Active Problems Active Problems: All Active Problems (Updated 07/07/23 @ 16:36 by Mary Noriega NP) Gallstone (Acute) Past Medical History Medical History Gallstone Family History Family history of problems with anesthesia: No Surgical History History of Problems with Anesthesia: No Social History Social History Household Members: Family Housing: Apartment Do you presently have visiting nurse or other home services: No Patient Tobacco Use Status: Never used Tobacco Smoked in Last 30 Days: No Second Hand Smoke Exposure: No Use of substances other than those prescribed or required for medical reasons: No Currently Displaying Signs/Symptoms of Drug Intoxication Withdrawal: No Have you been hit, kicked, punched, or otherwise hurt by someone within the past year? If so, by whom?: No Do you feel safe in your current relationship?: No Current Relationship Is there a partner from a previous relationship who is making you feel unsafe now?: No Are you made to feel afraid or neglected: No Are you DNR?: No Advance Directives: No Advance Directives Information Provided: No Advance Directives on File: No Do you have thoughts of harming others: None Do you have a plan to hurt others: No Plan Recently lost weight without trying: No Nutrition Risks: No Nutritional Risk Poor oral hygiene: No service: No Meds Allergies Allergy/AdvReac Type Severity Reaction Status Date / Time No Known Allergies Allergy Verified 06/30/22 01:07 [No Known Allergies*] Active Medications: Current Medications Dextrose/Sodium Chloride (D5ns) 1,000 mls @ 80 mls/hr IVCONT .[id number] [facility] Last Admin: 07/09/23 07:27 Dose: 80 mls/hr Promethazine HCl 12.5 mg/ (Sodium Chloride) 50.5 mls @ 202 mls/hr IV Q6H PRN PRN Reason: Nausea Last Infusion: 07/07/23 21:52 Dose: Infused Morphine Sulfate (Morphine Sulfate 2 Mg/Ml Cartridge) 2 mg IVPUSH Q3H PRN; Protocol PRN Reason: Pain, Severe (Pain Scale 7-10) Ondansetron HCl (Ondansetron Hcl 4 Mg/2 Ml Vial) 4 mg IVPUSH Q8H PRN PRN Reason: nausea Oxycodone HCl (Oxycodone Hcl Immed Release 5 Mg Tablet) 5 mg PO Q6H PRN PRN Reason: Pain, Moderate(Pain Scale 4-6) Last Admin: 07/08/23 16:40 Dose: 5 mg Sodium Chloride (0.9 % Sodium Chloride Flush 3 Ml Syringe) 3 ml IVFLUSH [facility] Last Admin: 07/09/23 07:28 Dose: Not Given Home Medications Medication Instructions Recorded Confirmed Last Taken Type No Known Home Meds 07/07/23 07/07/23 Unknown History Exam Height,Weight and Vital Signs: Height 5 ft 6 in Weight 81 kg Last Vital Signs Temp 98.4 F 07/09/23 10:33 Pulse 98 07/09/23 10:33 Resp 16 07/09/23 10:33 BP 125/80 07/09/23 10:33 Pulse Ox 98 07/09/23 10:33 O2 Del Method Room Air 07/09/23 10:33 Pertinent Lab Results Pertinent Lab Results: Laboratory Tests 07/07/23 07/07/23 07/08/23 11:19 17:03 05:18 WBC 11.3 H 9.5 RBC 5.58 4.99 Hgb 15.7 14.2 Hct 45.8 41.4 L MCV 82.1 83.0 MCH 28.1 28.5 MCHC 34.3 34.3 RDW 12.0 12.5 Plt Count 258 225 MPV 10.1 10.2 Immature Gran % (Auto) 0.4 0.3 Neut % (Auto) 87.0 H 67.7 Lymph % (Auto) 9.4 L 21.4 [place] % (Auto) 2.9 10.4 Eos % (Auto) 0.1 0.0 Baso % (Auto) 0.2 0.2 Lymph # (Auto) 1.1 L 2.0 [place] # (Auto) 0.3 1.0 Eos # (Auto) 0.0 0.0 Baso # (Auto) 0.0 0.0 Abs Immat Gran (auto) 0.05 H 0.03 Absolute Neuts (auto) 9.8 H 6.4 Absolute Nucleated RBC 0.000 0.000 Nucleated RBC % (auto) 0.0 0.0 Hold Purple Top Sodium 142 142 Potassium 3.9 Chloride 104 Carbon Dioxide 29 Anion Gap 13 BUN 13 Creatinine 1.19 Estim Creat Clear Calc 97.0 Estimated GFR > 60 Random Glucose 129 H Lactic Acid 1.5 Calcium 10.0 Magnesium 1.9 Total Bilirubin 0.6 Direct Bilirubin AST 34 ALT 72 H Alkaline Phosphatase 69 Total Protein 8.8 H Albumin 4.9 Lipase 15 07/08/23 07/08/23 07/08/23 05:18 05:18 05:18 WBC RBC Hgb Hct MCV MCH MCHC RDW Plt Count MPV Immature Gran % (Auto) Neut % (Auto) Lymph % (Auto) [place] % (Auto) Eos % (Auto) Baso % (Auto) Lymph # (Auto) [place] # (Auto) Eos # (Auto) Baso # (Auto) Abs Immat Gran (auto) Absolute Neuts (auto) Absolute Nucleated RBC Nucleated RBC % (auto) Hold Purple Top Sodium 142 Potassium 3.4 3.5 Chloride 106 106 Carbon Dioxide 26 Anion Gap BUN Creatinine Estim Creat Clear Calc Estimated GFR Random Glucose Lactic Acid Calcium Magnesium Total Bilirubin Direct Bilirubin AST ALT Alkaline Phosphatase Total Protein Albumin Lipase 07/08/23 07/08/23 07/08/23 05:18 05:18 05:18 WBC RBC Hgb Hct MCV MCH MCHC RDW Plt Count MPV Immature Gran % (Auto) Neut % (Auto) Lymph % (Auto) [place] % (Auto) Eos % (Auto) Baso % (Auto) Lymph # (Auto) [place] # (Auto) Eos # (Auto) Baso # (Auto) Abs Immat Gran (auto) Absolute Neuts (auto) Absolute Nucleated RBC Nucleated RBC % (auto) Hold Purple Top Sodium Potassium Chloride Carbon Dioxide 26 Anion Gap 13 14 BUN 8 L 8 L Creatinine 0.91 Estim Creat Clear Calc Estimated GFR Random Glucose Lactic Acid Calcium Magnesium Total Bilirubin Direct Bilirubin AST ALT Alkaline Phosphatase Total Protein Albumin Lipase 07/08/23 07/08/23 07/08/23 05:18 05:18 05:18 WBC RBC Hgb Hct MCV MCH MCHC RDW Plt Count MPV Immature Gran % (Auto) Neut % (Auto) Lymph % (Auto) [place] % (Auto) Eos % (Auto) Baso % (Auto) Lymph # (Auto) [place] # (Auto) Eos # (Auto) Baso # (Auto) Abs Immat Gran (auto) Absolute Neuts (auto) Absolute Nucleated RBC Nucleated RBC % (auto) Hold Purple Top Sodium Potassium Chloride Carbon Dioxide Anion Gap BUN Creatinine 0.93 Estim Creat Clear Calc 128.3 125.6 Estimated GFR > 60 > 60 Random Glucose 118 H Lactic Acid Calcium Magnesium Total Bilirubin Direct Bilirubin AST ALT Alkaline Phosphatase Total Protein Albumin Lipase 07/08/23 07/08/23 07/09/23 05:18 05:18 05:20 WBC RBC Hgb Hct MCV MCH MCHC RDW Plt Count MPV Immature Gran % (Auto) Neut % (Auto) Lymph % (Auto) [place] % (Auto) Eos % (Auto) Baso % (Auto) Lymph # (Auto) [place] # (Auto) Eos # (Auto) Baso # (Auto) Abs Immat Gran (auto) Absolute Neuts (auto) Absolute Nucleated RBC Nucleated RBC % (auto) Hold Purple Top Sodium Potassium Chloride Carbon Dioxide Anion Gap BUN Creatinine Estim Creat Clear Calc Estimated GFR Random Glucose 118 H Lactic Acid Calcium 9.1 D 9.1 Magnesium Total Bilirubin 1.5 H 1.5 H Direct Bilirubin 0.5 AST 142 H 74 H ALT 141 H 149 H Alkaline Phosphatase 57 65 Total Protein 7.1 7.5 Albumin 4.0 4.1 Lipase 07/09/23 05:46 WBC RBC Hgb Hct MCV MCH MCHC RDW Plt Count MPV Immature Gran % (Auto) Neut % (Auto) Lymph % (Auto) [place] % (Auto) Eos % (Auto) Baso % (Auto) Lymph # (Auto) [place] # (Auto) Eos # (Auto) Baso # (Auto) Abs Immat Gran (auto) Absolute Neuts (auto) Absolute Nucleated RBC Nucleated RBC % (auto) Hold Purple Top SEE NOTE Sodium Potassium Chloride Carbon Dioxide Anion Gap BUN Creatinine Estim Creat Clear Calc Estimated GFR Random Glucose Lactic Acid Calcium Magnesium Total Bilirubin Direct Bilirubin AST ALT Alkaline Phosphatase Total Protein Albumin Lipase Airway Mallampati Class: II TM Dist: >3cm Neck ROM: Full Heart: rrr Lungs: cta Assessment and Plan Assessment Anesthesia Assessment: Anesthesia Plan Discussed and Chart Reviewed Final Anesthetic Review Family History of Problems with Anesthesia: No History of Problems with Anesthesia: No NPO: Yes ASA Class: I Final Preanesthetic Review: No Changes in Pt Med Stat, Meds/Allgs Chart Reviewed, Consent Obtained/Reviewed and Anes Risks/Benef Reviewed Patient Risk: Low Procedure Risk: Intermediate Anesthetic Plan Anesthetic Plan: GA Disposition: Standard PACU
--- NOTE | 2023-07-09 12:54 | P.OP_ITS ---
Operative Note Operative Note Date of Service: 07/09/23 Narrative: Preop diagnosis: Acute calculous cholecystitis Postop diagnosis the same Procedure: Laparoscopic cholecystectomy Surgeon: Phoenix Brand MD occupational therapist assistant: LESIA Estrada The patient is a 22-year-old male admitted for right upper quadrant pain and tenderness. He is ultrasound was suggestive of acute cholecystitis with a large stone in the neck. He had a bump in his bilirubin yesterday so the procedure was held. His MRCP did not reveal CBD stones I therefore schedule him for laparoscopic cholecystectomy today. He understands the technique of the procedure. He is aware of the risks, benefits, and alternatives He was brought to the operating room. He was placed supine under general anesthesia via endotracheal tube. The abdomen was prepped and draped in the usual sterile fashion. A surgical time-out was done. The patient received Cefotan 2 g IV preoperatively I made a short incision in the supra umbilical margin using a blade 15. This was carried down bluntly through the full-thickness of the skin subcutaneous fat down to the fascia. The fascia was incised. The peritoneum was entered. Through this incision a Anahy port was introduced. Pneumoperitoneum was introduced to a pressure of 15 mm Hg. From here on the rest of the procedure was done under vision with a 10 mm laparoscope. With laparoscopic visualization I inserted a 5/12 minutes port in the epigastric area at the subcostal margin the. Two 5 mm ports introduced through small incisions below the subcostal margin along the anterior axillary line and the midclavicular line. Graspers were placed through these working ports. The patient was placed in head up and [id number] position. The gallbladder was seen. This was markedly distended and appeared to be tense so I had to decompress this with an aspirating needle through 1 of the working ports. Once this was decompressed, we were able to play grasper at the fundus. This was used to retract the gallbladder cephalad. There was note of some thick adhesions on the anterior wall which we had to carefully bluntly separate using a [place] dissector. Eventually were able to expose the entire anterior wall. I was able to apply a grasper towards the pouch of the gallbladder and this was used to retract gallbladder laterally. At this point the gallbladder was being retracted in a cephalad and lateral fashion to put the area of the cystic duct on stretch. I proceeded to carefully new blunt dissection of the neck of the gallbladder using the [place] dissector because of the presence of thick inflamed fiber areolar tissue. We continued with this dissection until I was able to carefully define the confluence of the neck of the gallbladder with the cystic duct. By doing so we were able to also achieve a critical view of the hepatocystic triangle. The cystic artery was seen clearly. There was note of significant oozing from the gallbladder itself because of the acute inflammation. The gallbladder was very edematous and inflamed. I therefore applied clips on the cystic duct with 2 clips being applied distally. The cystic duct was transected between clips with Endo scissors. I proceeded to apply clips on the cystic artery as well and this was divided between clips with Endo scissors. Two clips were applied distally We proceeded to apply traction on the gallbladder away from the liver bed. I used the electrocautery spatula to carefully divide across the hilum. I made an incision on the thick inflamed peritoneum of the gallbladder using the electrocautery spatula. I then proceeded to create a plane of dissection along this incision and the gallbladder from the liver bed using a combination of sharp dissection with the electrocautery and blunt dissection with the tip of the spatula. We continued to separate the gallbladder away from the liver bed along this well-defined plane of dissection all the way to the fundus until the entire gallbladder was completely . The gallbladder was retrieved through an endobag through the umbilical incision I reinserted all ports and re-insufflated. I examined the area of dissection carefully. I copiously irrigated and suctioned out the irrigant fluid as there was a little bit of leak of bile from the stump of the cystic duct on the gallbladder side. I then observed all 4 quadrants. There was no other pathology there was no evidence of any bile leak or any bleeding or bowel injury. I reinserted the subhepatic space. No evidence of any bleeding. Once hemostasis was confirmed, I desufflated through the port sites. I removed all p orts under vision with the laparoscope. The umbilical port was removed last The fascia of the umbilical incision was closed with a [id number] Polysorb 0 stitch. Skin closure was achieved all incisions using Polysorb 4-0 subcuticular running sutures. All incisions were infiltrated with Marcaine 0.5% for postop analgesia. Steri- Strips and dressings were applied. The procedure was completed The patient tolerated procedure well. There were no immediate complications. Initial and final counts of sponges and instruments were correct. Estimated blood loss was about 100 cc The patient was extubated without difficulty and transferred to the recovery room with stable vital signs.
--- NOTE | 2023-07-09 14:39 | PC.NURSE ---
Addendum entered by Mandie March RN 07/09/23 14:48: Pt denying pain at this time. Original Note: Pt returned from PACU at 1439, at this time Pt A&Ox3 but drowsy, arousable to voice. Pt has 4 band-aids in place, two midline and two to the right abd. Middle band-aid has small amount of staining. VSS.
--- NOTE | 2023-07-09 15:47 | PM.EVENT ---
Event Note Date of Service: 07/09/23 Event Note: Seen postop Underwent uneventful laparoscopic cholecystectomy earlier Asleep Complaining of incisional pain but otherwise adequate pain control Stable vital signs Abdomen soft Pain management Diet as tolerated Possibly DC home tomorrow Mother at bedside, updated Time Spent With Patient Time: Total time managing care of this patient today ____ minutes.
[2023-07-09] MEDS: oxyCODONE HCl Immed Release 5 MG TABLET 10 MG PO ×2 (16:44→23:15)
[2023-07-10 03:06] VITALS: BP 113/56; PULSE 90; RESP 18; TEMP 36.5; O2SAT 97
[2023-07-10] MEDS: oxyCODONE HCl Immed Release 5 MG TABLET 10 MG PO ×2 (08:09→12:15)
[2023-07-10] MEDS: 0.9 % Sodium Chloride Flush 3 ML SYRINGE IVFLUSH (08:12)
[2023-07-10 08:20] VITALS: BP 109/52; PULSE 89; RESP 16; TEMP 36.8; O2SAT 97
--- NOTE | 2023-07-10 09:02 | P.PNGS_ITS ---
Subjective Subjective Date of Service: 07/10/23 <Tanya Estrada PA-C - Last Filed: 07/10/23 09:04> 07/10/23 <Phoenix Brand MD - Last Filed: 07/10/23 10:06> Interval history: Tolerating solid diet without nausea or vomiting. Having pain at umbilicus but comfortable with analgesics. OOB and ambulating without difficulty. Mom at bedside. <Tanya Estrada PA-C - Last Filed: 07/10/23 09:04> Physical Exam 2 Vital Signs: Vital Signs: Last Vital Signs Temp 98.3 F 07/10/23 08:20 Pulse 89 07/10/23 08:20 Resp 16 07/10/23 08:20 BP 109/52 L 07/10/23 08:20 Pulse Ox 97 07/10/23 08:20 O2 Del Method Room Air 07/10/23 08:20 O2 Flow Rate 2.0 07/09/23 15:09 BMI result Body Mass Index 28.8 <Tanya Estrada PA-C - Last Filed: 07/10/23 09:04> Const: General: comfortable, no acute distress and alert <Tanya Estrada PA-C - Last Filed: 07/10/23 09:04> Orientation/consciousness: patient oriented x3 <Tanya Estrada PA-C - Last Filed: 07/10/23 09:04> Resp: Effort & Inspection: normal respiratory effort <Tanya Estrada PA-C - Last Filed: 07/10/23 09:04> GI: Inspection: No distended and Yes incision (dressings intact) <Tanya Estrada PA-C - Last Filed: 07/10/23 09:04> Palpation (GI): Soft to palpation, Tenderness to palpation present (GI) (mild incisional), no guarding and not rigid <DIANA Taylor Last Filed: 07/10/23 09:04> Skin: General skin exam: no rashes or lesions noted and no jaundice < Tanya Estrada PA-C - Last Filed: 07/10/23 09:04> Neuro: General: patient oriented x3 <Tanya Estrada PA-C - Last Filed: 07/10/23 09:04> Objective Data Active Medications Acetaminophen (Acetaminophen 325 Mg Tablet) 650 mg PO Q6H PRN PRN Reason: fever, pain Dextrose/Sodium Chloride (D5ns) 1,000 mls @ 80 mls/hr IVCONT .[id number] [facility] Last Admin: 07/10/23 08:10 Dose: Not Given Documented By: ARIAN Non-Admin Reason: Physician Held Med Promethazine HCl 12.5 mg/ (Sodium Chloride) 50.5 mls @ 202 mls/hr IV Q6H PRN PRN Reason: Nausea Last Infusion: 07/07/23 21:52 Dose: Infused Documented By: SREEDHAR Morphine Sulfate (Morphine Sulfate 4 Mg/Ml Cartridge) 4 mg IVPUSH Q4H PRN; Protocol PRN Reason: Pain, Severe (Pain Scale 7-10) Ondansetron HCl (Ondansetron Hcl 4 Mg/2 Ml Vial) 4 mg IVPUSH Q8H PRN PRN Reason: nausea Oxycodone HCl (Oxycodone Hcl Immed Release 5 Mg Tablet) 5 mg PO Q6H PRN PRN Reason: Pain, Moderate(Pain Scale 4-6) Last Admin: 07/08/23 16:40 Dose: 5 mg Documented By: EM Oxycodone HCl (Oxycodone Hcl Immed Release 5 Mg Tablet) 10 mg PO Q4H PRN PRN Reason: Pain, Severe (Pain Scale 7-10) Last Admin: 07/10/23 08:09 Dose: 10 mg Documented By: ARIAN Sodium Chloride (0.9 % Sodium Chloride Flush 3 Ml Syringe) [facility] Last Admin: 07/10/23 08:12 Dose: 3 ml Documented By: ARIAN <Tanya Estrada PA-C - Last Filed: 07/10/23 09:04> Labs CBC & Chem 7: 07/08/23 05:18 07/08/23 05:18 <Tanya Estrada PA-C - Last Filed: 07/10/23 09:04> Microbiology Microbiology Results: Microbiology 07/07/23 17:03 Blood Culture - Preliminary Blood - Venous No growth after 48 hours. 07/07/23 17:03 Blood Culture - Preliminary Blood - Venous No growth after 48 hours. <Tanya Estrada PA-C - Last Filed: 07/10/23 09:04> Procedures Date of Service Date of Service: 07/10/23 <Tanya Estrada PA-C - Last Filed: 07/10/23 09:04> 07/10/23 <Phoenix Brand MD - Last Filed: 07/10/23 10:06> Progress Note: A&P Assessment and plan (1) S/P laparoscopic cholecystectomy: Status: Acute <Tanya Estrada PA-C - Last Filed: 07/10/23 09:04> Assessment and Plan: Seen earlier on rounds Has pain on the umbilical incision Tolerating diet Looks well overall Has been ambulating Okay to DC home These instructions emphasized His mom was at bedside Seen and examined independently, agree with LESIA Estrada <Phoenix Brand MD - Last Filed: 07/10/23 10:06> Assessment and Plan: POD #1 s/p lap manjinder for acute cholecystitis. Doing well post op, tolerating diet and pain well controlled. Abdomen benign with appropriate post op tenderness. Dressings intact. Stable for dc to home today. F/u in office in 2 weeks. Patient and mom comfortable with plan. <Tanya Estrada PA-C - Last Filed: 07/10/23 09:04> Time Spent With Patient Time: Total time managing care of this patient today ____ minutes. <Tanya Estrada PA-C - Last Filed: 07/10/23 09:04> Quality Stroke Does the patient have a stroke diagnosis?: No <Tanya Estrada PA-C - Last Filed: 07/10/23 09:04> VTE Prior VTE?: No <Tanya Estrada PA-C - Last Filed: 07/10/23 09:04> VTE Risk Level:: Medical - low <Tanya Estrada PA-C - Last Filed: 07/10/23 09:04> VTE Device Contraindication: Treatment Not Indicated <Tanya Estrada PA-C - Last Filed: 07/10/23 09:04> VTE Drug Contraindication: Treatment Not Indicated <Tanya Estrada PA-C - Last Filed: 07/10/23 09:04>
--- NOTE | 2023-07-10 09:16 | MHC.CM.PN ---
pt is dcd home no services
--- NOTE | 2023-07-10 13:25 | PM.DS ---
DS: Providers Provider Date of Service: 07/10/23 Date of admission: 07/07/23 16:31 Date of discharge: 07/10/23 Primary care physician: Unknown Physician Attending physician on admission: Phoenix Brand Attending physician on discharge: Phoenix Brand DS: Diagnosis Discharge Diagnosis (1) S/P laparoscopic cholecystectomy: Status: Acute DS: Summary Hospital Course Hospital Course: HPI AT ADMISSION: Aidel Mullins is a 22 year old male here in the ED for RUQ pain. He says this started at around 7 AM today. The describes this as constant. He says this was not severe but had persisted so he decided to come to the ED this afternoon. He admits to some nausea and vomiting earlier. He denies previous similar episodes. Imaging showed gallstones with a question of a gallstone in the neck, concerning for acute cholecystitis. He was overall well appearing with a benign, non tender abdominal exam however admission was advised in view of the question of cholecystitis with option of proceeding with lap cholecystectomy poss. open. HOSPITAL COURSE: The patient was admitted to the surgical service for further treatment. He elected to proceed with lap cholecystectomy however he had a bump in his LFTs the following day and therefore cholecystectomy was held and MRCP was performed. This demonstrated no CBD stone. His LFTs improved the following day and surgery was planned. On 07/09/23, a laparoscopic cholecystectomy was performed by Dr. Brand without complication. The patient tolerated the procedure well. He had an uncomplicated recovery course. On POD #1, he felt well with good pain control. He was tolerating a solid diet and ambulating without difficulty. His vitals were stable and abdomen was benign with intact dressings. He felt ready for discharge. He was discharged to home on 07/10/23 in stable condition. He is to follow up in the office in 2 weeks. Status at Discharge Functional status at discharge: independent ambulation Overall status at discharge: patient is progressing back to baseline Time Attestation Discharge coordination time: Less than 30 minutes Quality: Safe Use of Opioids Does Pt have an Active Cancer Diagnosis on the Problem List?: No Quality: Stroke Does the patient have a stroke diagnosis?: No Physical Exam Vital Signs: Vital Signs: Last Vital Signs Temp 98.3 F 07/10/23 08:20 Pulse 89 07/10/23 08:20 Resp 16 07/10/23 08:20 BP 109/52 L 07/10/23 08:20 Pulse Ox 97 07/10/23 08:20 O2 Del Method Room Air 07/10/23 08:20 O2 Flow Rate 2.0 07/09/23 15:09 BMI result Body Mass Index 28.8 Const: General: comfortable, no acute distress and alert Orientation/consciousness: patient oriented x3 Resp: Effort & Inspection: normal respiratory effort GI: Inspection: No distended and Yes incision (dressings intact) Palpation (GI): Soft to palpation, Tenderness to palpation present (GI) (mild incisional), no guarding and not rigid Skin: General skin exam: no rashes or lesions noted and no jaundice Neuro: General: patient oriented x3 and moves all extremities DS: Data Data Completed and Pending Pending studies at discharge: Pending at discharge 07/09/23 12:39 Surgical [PTH] Routine Labs on day of discharge: Preliminary micro results at discharge 07/07/23 17:03 Blood Culture - Preliminary Blood - Venous No growth after 48 hours. 07/07/23 17:03 Blood Culture - Preliminary Blood - Venous No growth after 48 hours. Discharge Plan Discharge Anticipated Discharge Date/Time: 07/10/23 09:01 Patient Disposition: Home, Self-Care Discharge Diagnosis: acute cholecystitis Referrals: Phoenix Brand MD [Physician] - 2 Weeks Physician,Talya J [Primary Care Provider] - 1 Week Discharge Medications: New ibuprofen 600 mg tablet 600 mg PO Q6H PRN (Reason: pain) Qty: 30 0RF oxycodone 5 mg tablet 5 mg PO Q4H PRN (Reason: pain (scale score 7-10)) Qty: 24 0RF Rx Instructions: Partial Fill upon patient request. docusate sodium [Colace] 100 mg capsule 100 mg PO BID Qty: 30 0RF Discharge Orders: Discharge Order (Routine); Ordered 07/10/23 Ordered By: Tanya Estrada Diet: Low fat, low cholesterol Activity on Discharge: No heavy lifting Stand Alone Forms: Patient Portal Discharge page Activity Restrictions/Additional Instructions: If the incision area is tender, you may apply an ice pack for short intervals (No more than 20 minutes on, followed by at least 20 minutes off). Do not apply heat. Do not use creams, lotions, or topical antibiotics. These can cause infection or allergic reaction. Ok to shower 24 hours after your surgery. Remove bandaids in 2 days and replace. You have steri strips (small white cloth strips) covering your incision- these will fall off ~1 week. Follow up in office with Dr. Brand in 2 weeks. ([phone]) No heavy lifting (>10-20lbs) or strenuous activity! Call Your Doctor If: -Your temperature exceeds 101.5? F -You experience excessive pain or swelling -You have an unexpected reaction to medication -You have excessive bleeding -You experience continued vomiting/nausea -Your incision begins to separate -Your incision shows signs of infection such as increased redness, swelling, excessive pain, drainage (light blood or clear fluid is normal) or heat Care Plan Goals: Return to baseline health and resume normal activities following recovery period. Health Concerns: acute cholecystitis s/p laparoscopic cholecystectomy Plan of Treatment: F/u in office in 2 weeks Assessment: Doing well post op. Discharge Date/Time: 07/10/23 13:27
== END 2023-07-10 13:27 | disposition home or self-care (01) | DRG 263 ==
LOC: HO.ED 16:37 → HO.EDOVER 16:57 → HO.S3 19:52
PROVIDERS: Nurse Practitioner Family; Physician Assistant Medical; Admitting Provider Surgery; Emergency Provider Student in an Organized Health Care Education/Training Program; Visit Provider Surgery
PROC: 0FT44ZZ Resection of Gallbladder, Percutaneous Endoscopic Approach (ICD-10-PCS; CPT 47562; principal; 2023-07-09 10:50)
DX: K80.00 Calculus of gallbladder with acute cholecystitis without obstruction (principal)
CPT/HCPCS: 36415; 74176; 74181; 76705; 80048; 80053; 80076; 83605; 83690; 83735; 85025; 87040; 88304; 99285; J0131; J0665; J1100; J1170; J1885; J2250; J2270; J2405; J2543; J2550; J2704; J2795; J3010

== ENCOUNTER → 2023-07-07 16:31 | Outpatient (BNV) | payer MEDICAID, SELFPAY | PROVIDERS: Admitting Provider Surgery; Emergency Provider Student in an Organized Health Care Education/Training Program; Visit Provider Surgery | DX: K80.20 Calculus of gallbladder without cholecystitis without obstruction (principal); Z90.49 Acquired absence of other specified parts of digestive tract | CPT/HCPCS: 47562; 99024; 99222; 99232; 99499 ==

== ENCOUNTER 2023-07-22 15:02 | Outpatient (REF) | payer MEDICAID, SELFPAY ==
[2023-07-22 16:29] LABS: Alanine Aminotransferase 59 U/L (0-40); Albumin Level 4.7 g/dL (3.5-5.0); Alkaline Phosphatase 71 U/L (39-117); Anion Gap 10 (12-20); Aspartate Amino Transferase 26 U/L (5-37); Bilirubin Total 0.7 mg/dL (0.0-1.0); Blood Urea Nitrogen 10 mg/dL (9-16); Calcium 10.2 mg/dL (8.4-10.2); Carbon Dioxide 31 mmol/L (22-29); Chloride 105 mmol/L (96-108); Cholesterol 161 mg/dL (<200); Estimated Glomerular Filt Rate > 60; Glucose Random 112 mg/dL (60-115); HDL Cholesterol 32 mg/dL (>40); LDL Cholesterol Calculated 85 mg/dL (<100); Sodium 142 mmol/L (135-145); Total Protein 8.2 g/dL (6.5-8.0); Triglycerides 221 mg/dL (<150)
[2023-07-23 08:10] LABS: ~HepC Num1 0.17 S/CO (0.00-0.79); ~Hepatitis C Antibody Nonreactive (Nonreactive)
[2023-07-24 07:09] LABS: RPR Rapid Plasma Reagin NON-REACTIVE (NON-REACTIVE)
[2023-07-24 19:49] LABS: HIV RNA PCR Qn Copies Not Detected Copies/mL; HIV RNA PCR Qn Log Copies Not Detected Log cps/mL
== END 2023-07-22 15:03 | disposition home or self-care (01) ==
LOC: HO.HHCL 15:02
PROVIDERS: Visit Provider Nurse Practitioner Family
DX: Z00.00 Encounter for general adult medical examination without abnormal findings (principal)
CPT/HCPCS: 36415; 80053; 80061; 86592; 86803; 87536; 87900

== ENCOUNTER 2023-07-24 14:47 | Outpatient (AMB) | payer MEDICAID, SELFPAY ==
--- NOTE | 2023-07-24 15:39 | A.OFFVIS_ITS ---
Intake Vital Signs 07/24/23 15:44 Weight 172 lb BP 119/57 L Blood Pressure Location Rt brachial Position Sitting Pulse 80 Intake Visit Reasons: post lap manjinder Intake Note: This patient presents for a post-op assessment status post laparoscopic cholecystectomy. Pt c/o; reports no complaints at this time. Still taking rx pain meds as needed. DOS:07/09/2023 Machine Brusher Required: No Accompanied by: mother, sister Allergies No Known Allergies [No Known Allergies*] Allergy (Verified 07/24/23 15:45) HPI post lap manjinder HPI Details 22-year-old male who underwent laparosco pic cholecystectomy for acute cholecystitis last 07/09/2023, here for a postop visit. He says he has been doing very well. He has good oral intake. He denies significant pain. [facility]LY [facility] Medical History Gallstone Surgical History Hx laparoscopic cholecystectomy (~07/09/23) Social History Household Members: Family Housing: Apartment Do you presently have visiting nurse or other home services: No Patient Tobacco Use Status: Never used Tobacco Second Hand Smoke Exposure: No service: No Review of Systems Const Denies chills and Denies fever(s) Card Denies chest pain, Denies dyspnea and Denies dyspnea on exertion Resp Denies cough, Denies dyspnea and Denies dyspnea on exertion GI Denies hematochezia and Denies change in bowel habits Denies hematuria and Denies difficulty urinating Musc Denies back pain and Denies limited range of motion Neuro Denies focal weakness and Denies convulsions Psych Denies depression and Denies mood swings Physical Exam Vital Signs: Last Vital Signs Pulse 80 07/24/23 15:44 BP 119/57 L 07/24/23 15:44 Const General: comfortable and no acute distress Eyes Other: Nonicteric sclerae GI Other: All incisions are well healed Palpation (GI): Soft to palpation, not firm and nontender Assessment & Plan Assessment & Plan (1) S/P laparoscopic cholecystectomy: Code(s): Z90.49 - Acquired absence of other specified parts of digestive tract Plan: He is doing very well postoperatively. All incisions are well healed. I adv ised him to avoid any lifting more than 20 lb for at least 2 more weeks. He can follow up on a p.r.n. basis. Coding Level of Care Code Global (83089) Diagnoses S/P laparoscopic cholecystectomy Z90.49
[2023-07-24 15:44] VITALS: BP 119/57; PULSE 80
== END 2023-07-24 15:53 | disposition home or self-care (01) ==
LOC: HO.HGS 14:47
PROVIDERS: PCP Nurse Practitioner Family; Visit Provider Surgery
DX: Z90.49 Acquired absence of other specified parts of digestive tract (principal)
CPT/HCPCS: 99024

== ENCOUNTER → 2023-07-24 14:47 | Outpatient (BNVA) | payer MEDICAID, SELFPAY | PROVIDERS: PCP Nurse Practitioner Family; Visit Provider Surgery | DX: Z48.815 Encounter for surgical aftercare following surgery on the digestive system (principal); Z90.49 Acquired absence of other specified parts of digestive tract | CPT/HCPCS: 99212 ==

== ENCOUNTER 2025-04-26 11:38 | Outpatient (REF) | payer MEDICAID, SELFPAY ==
[2025-04-26 13:49] LABS: MANUAL DIFF FLAG NO
[2025-04-26 14:12] LABS: Cholesterol 149 mg/dL (<200); HDL Cholesterol 38 mg/dL (>40); Triglycerides 153 mg/dL (<150)
[2025-04-26 14:20] LABS: Hematocrit 46.3 % (42.0-52.0); Hemoglobin 15.4 g/dl (14.0-18.0); Imm Gran Abs Auto 0.01 X10*3/uL (0.00-0.03); Imm Gran Pct Auto 0.2 % (0.0-0.4); Lymphocytes Absolute Auto 2.3 X10*3/uL (1.2-4.9); Mean Corpuscular HGB Conc 33.3 g/dl (31.0-36.0); Mean Corpuscular Hemoglobin 27.6 pg (27.0-33.0); Mean Corpuscular Volume 83.1 fL (80.0-98.0); NRBC Abs Auto 0.000 X10*3/uL (0.0-0.012); NRBC Pct Auto 0.0 /100WBC (0.0-0.2); Platelet Count 258 X10*3/uL (160-400); Red Blood Count 5.57 X10*6/uL (4.60-5.80); White Blood Count 6.0 X10*3/uL (4.8-10.8)
== END 2025-04-26 11:39 | disposition home or self-care (01) ==
LOC: HO.HHCL 11:38
PROVIDERS: PCP Nurse Practitioner; Visit Provider Nurse Practitioner
DX: E78.1 Pure hyperglyceridemia (principal); L65.9 Nonscarring hair loss, unspecified
CPT/HCPCS: 36415; 80061; 82306; 84443; 85025; 86592